=== PATIENT | male | born 1990 | race Hispanic/Latino ===

== ENCOUNTER 2024-08-17 08:25 | Emergency (ER) | payer OTHER ==
[~2024-08-17] VITALS: Ht 172.7 cm; Wt 87.8 kg
[2024-08-17] MEDS ORDERED: LIDODERM1 EACH TOP (08:58)
[2024-08-17] MEDS ORDERED: NAPROSYN500 MG PO (08:58)
[2024-08-17 09:12] VITALS: BP 145/107
== END 2024-08-17 09:14 | disposition home or self-care (01) ==
LOC: ED 08:25
DX: S39.012A Strain of muscle, fascia and tendon of lower back, initial encounter (principal); V89.2XXA Person injured in unspecified motor-vehicle accident, traffic, initial encounter
CPT/HCPCS: 72100; 99283